=== PATIENT | female | born 1945 | race Caucasian/White ===

== ENCOUNTER 2019-11-17 13:20 | Outpatient (CLI) | payer MEDICARE, MEDICAID, SELFPAY ==
--- NOTE | ~2019-11-17 | MM_ITS ---
EXAMINATION: MM screening [facility] BI w sabrina HISTORY: Screening mammogram, history of right breast cancer TECHNIQUE: Craniocaudal and mediolateral oblique 3-D tomosynthesis images were obtained and synthetic 2-D images were generated. CAD analysis was submitted and interpreted. COMPARISON: 05/26/2019, 07/12/2018, 06/21/2017 BREAST PARENCHYMAL COMPOSITION: There are scattered areas of fibroglandular density. FINDINGS: Architectural distortion of the right breast is consistent with lumpectomy change. There is no evidence of suspicious mass, calcification, or architectural distortion to suggest malignancy in either breast. There has been no suspicious interval change. IMPRESSION: 1. No mammographic evidence of malignancy. 2. Recommend routine screening mammography in one year. BI-RADS Category 2: Benign finding(s). Reviewed, dictated and finalized at location A. ER GOODS FINISHER
== END 2019-11-17 13:21 | disposition home or self-care (01) ==
PROVIDERS: PCP Internal Medicine; Visit Provider Obstetrics & Gynecology
DX: Z12.31 Encounter for screening mammogram for malignant neoplasm of breast (principal)
CPT/HCPCS: 77063; 77067

== ENCOUNTER → 2019-11-22 09:17 | Outpatient (CLI) | payer MEDICARE, MEDICAID, SELFPAY ==
--- NOTE | ~2019-11-22 | DEXA_ITS ---
Bone Density Report Name: Mildred Almeida Age: 74 Sex: Female Ethnicity: White Date of : 1945 Indication: postmenopausal; screening for osteoporosis; height loss; Referring Provider: Dorcas, Amanda Colon Study: Bone densitometry was performed. Exam Date: November 22, 2019 Accession number: [id number] Bone Density: Region BMD T-score Z-score Classification AP Spine (L1, L4) 1.222 1.7 4.1 Normal Femoral Neck (Left) 0.838 -0.1 2.0 Normal Total Hip (Left) 1.004 0.5 2.3 Normal Femoral Neck (Right) 0.899 0.5 2.6 Normal Total Hip (Right) 0.979 0.3 2.1 Normal Total Hip Mean 0.992 0.4 2.2 Normal World Health Organization criteria for BMD impression classify patients as: Normal (T-score at or above -1.0), Osteopenia (T-score between -1.0 and -2.5), or Osteoporosis (T-score at or below -2.5). 10-year Fracture Risk: FRAX not reported because: All T-scores for Spine Total, Hip Total, Femoral Neck at or above -1.0 Previous Exams: Region Exam Age BMD T-score BMD Change BMD Change Date g/cm2 vs Baseline vs Previous AP Spine(L1, L4) 11/22/2019 74 1.222 1.7 0.144* 0.137 04/19/2009 63 1.085 0.4 0.007 0.007 04/14/2006 60 1.078 0.4 Total Hip(Left) 11/22/2019 74 1.004 0.5 -0.096* 0.002 04/19/2009 63 1.002 0.5 -0.098 -0.098 04/14/2006 60 1.099 1.3 Total Hip(Right) 11/22/2019 74 0.979 0.3 -0.154* -0.035 04/19/2009 63 1.014 0.6 -0.120 -0.120 04/14/2006 60 1.134 1.6 *Denotes significance at 95% confidence level, LSC for AP Spine = 0.022 g/cm2, LSC for Total Hip = 0.027 g/cm2 Clinical Information Provided by Patient: Has used the following medications: Vitamin D, Calcium, CALCIUM AND MTV OFF AND ON Patient maximum height was 59.5 Menopause Age: 49 No regular weight bearing exercise Onset of menses at age 13 Number of children 2 Impression: The patient has normal bone mass. No significant bone loss was observed. Discussion: BONE DENSITY IS ABOVE THE MINIMUM DESIRABLE LEVEL AT ALL SKELETAL SITES TESTED. This patient?s bone mineral density is above the minimum desirable level (T-score -1.0 or better) at all sites measured. The patient should follow a healthful lifestyle (good nutrition with adequate calcium and vitamin D, and appropriate weight-bearing exercise). Follow-Up: Consider repe
== END ==
PROVIDERS: PCP Internal Medicine; Visit Provider Nurse Practitioner Obstetrics & Gynecology
DX: Z78.0 Asymptomatic menopausal state (principal)
CPT/HCPCS: 77080

== ENCOUNTER 2021-02-27 10:17 | Outpatient (CLI) | payer MEDICARE, MEDICAID, SELFPAY ==
--- NOTE | ~2021-02-27 | MM_ITS ---
EXAMINATION: MM screening [facility] BI w sabrina HISTORY: Screening TECHNIQUE: Craniocaudal and mediolateral oblique 3-D tomosynthesis images were obtained and synthetic 2-D images were generated. CAD analysis was submitted and interpreted. COMPARISON: Comparison to multiple prior studies sequentially, with oldest reviewed study dated 06/04. BREAST PARENCHYMAL COMPOSITION: There are scattered areas of fibroglandular density. FINDINGS: There are stable lumpectomy changes of the right breast. There is no evidence of suspicious mass, calcification, or architectural distortion to suggest malignancy in either breast. There has b een no suspicious interval change. IMPRESSION: 1. No mammographic evidence of malignancy. 2. Recommend routine screening mammography in one year. BI-RADS Category 2: Benign finding(s). Reviewed, dictated and finalized at location A.
== END 2021-02-27 10:18 | disposition home or self-care (01) ==
LOC: ANHIMG 10:26
PROVIDERS: PCP Internal Medicine; Visit Provider Radiology Radiation Oncology
DX: Z12.31 Encounter for screening mammogram for malignant neoplasm of breast (principal)
CPT/HCPCS: 77063; 77067

== ENCOUNTER 2022-03-27 07:44 | Outpatient (CLI) | payer MEDICARE, MEDICAID, SELFPAY ==
--- NOTE | ~2022-03-27 | MM_ITS ---
EXAMINATION: MM screening [facility] BI w sabrina HISTORY: Screening TECHNIQUE: Craniocaudal and mediolateral oblique 3-D tomosynthesis images were obtained and synthetic 2-D images were generated. CAD analysis was submitted and interpreted. COMPARISON: Comparison to multiple prior studies sequentially, with oldest reviewed study dated 06/21. BREAST PARENCHYMAL COMPOSITION: There are scattered areas of fibroglandular density. FINDINGS: There are developing breast asymmetries in the periareolar location of the right breast in the upper outer quadrant of the left breast. IMPRESSION: 1. Developing bilateral breast asymmetries. 2. Additional mammographic views and possible breast ultrasound are recommended. BI-RADS Category 0: Incomplete: Needs additional imaging evaluation. Reviewed, dictated and finalized at location A. IMPRESSION: 1. Developing bilateral breast asymmetries. 2. Additional mammographic views and possible breast ultrasound are recommended . BI-RADS Category 0: Incomplete: Needs additional imaging evaluation.
== END 2022-03-27 07:45 | disposition home or self-care (01) ==
PROVIDERS: PCP Internal Medicine; Visit Provider Radiology Radiation Oncology
DX: Z12.31 Encounter for screening mammogram for malignant neoplasm of breast (principal); R92.8 Other abnormal and inconclusive findings on diagnostic imaging of breast
CPT/HCPCS: 77063; 77067

== ENCOUNTER 2022-04-08 12:15 | Outpatient (CLI) | payer MEDICARE, MEDICAID, SELFPAY ==
--- NOTE | ~2022-04-08 | MMUS_ITS ---
EXAMINATION: MM diagnostic [facility] BI w sabrina, US breast BI limited HISTORY: Follow breast asymmetries TECHNIQUE: Additional 3-D tomosynthesis images of the breasts were performed and synthetic 2-D images were generated. CAD analysis was submitted and interpreted. High resolution limited bilateral breast ultrasound was performed. COMPARISON: Comparison to multiple prior studies sequentially, with oldest reviewed study dated 11/2017. BREAST PARENCHYMAL COMPOSITION: Breast composed of scattered areas of fibroglandular density FINDINGS: MAMMOGRAPHIC FINDINGS: There is a small subareolar mass of the right breast. There are surgical changes in the right breast, consistent with previous lumpectomy. The focal asymmetry in the left breast is less dense with spot compression views. No discrete mass or architectural distortion. No suspicious cluster of calcificati ons are identified. ULTRASOUND: Limited right breast ultrasound: At the areola there is a 4 mm cyst corresponding to the mammographic finding. No other masses are seen. Limited left breast ultrasound: Normal heterogeneous echotexture without focal solid or cystic mass. There is a normal appearing 11 mm lymph node with fatty hilum in the left axilla. IMPRESSION: 1. No evidence for malignancy in either breast. 2. Routine yearly screening mammogram and regular clinical breast examination are recommended. BI-RADS Category 2: Benign finding(s). Reviewed, dictated and finalized at location A. IMPRESSION: 1. No evidence for malignancy in either breast. 2. Routine yearly screening mammogram and regular clinical breast examination a re recommended. BI-RADS Category 2: Benign finding(s).
== END 2022-04-08 12:16 | disposition home or self-care (01) ==
LOC: ANHIMG 12:17
PROVIDERS: PCP Internal Medicine; Visit Provider Radiology Radiation Oncology
DX: R92.8 Other abnormal and inconclusive findings on diagnostic imaging of breast (principal)
CPT/HCPCS: 76642; 77062; 77066; G0279

== ENCOUNTER 2022-06-26 14:45 | Outpatient (CLI) | payer MEDICARE, MEDICAID, SELFPAY ==
--- NOTE | ~2022-06-26 | DEXA_ITS ---
Bone Density Report Name: TANA DESAI Age: 77 Sex: Female Ethnicity: White Date of : 1945 Indication: postmenopausal; screening for osteoporosis; height loss; cancer; rheumatoid arthritis; Referring Provider: MENG, HAVEN Huynh Study: Bone densitometry was performed. Exam Date: June 26, 2022 Accession number: [id number] Bone Density: Region BMD T-score Z-score Classification AP Spine(L1-L4) 1.420 3.4 6.0 Normal Femoral Neck (Left) 0.925 0.7 2.9 Normal Total Hip (Left) 0.998 0.5 2.4 Normal Femoral Neck (Right) 0.885 0.3 2.5 Normal Total Hip (Right) 1.021 0.6 2.6 Normal Total Hip Mean 1.009 0.6 2.5 Normal World Health Organization criteria for BMD impression classify patients as: Normal (T-score at or above -1.0), Osteopenia (T-score between -1.0 and -2.5), or Osteoporosis (T-score at or below -2.5). 10-year Fracture Risk: FRAX not reported because: All T-scores for Spine Total, Hip Total, Femoral Neck at or above -1.0 Clinical Information Provided by Patient: Has rheumatoid arthritis Has used the following medications: Vitamin D, Calcium Has the following medical conditions: Cancer Patient maximum height was 60 Menopause Age: 59 Drinks caffeinated beverages Onset of menses at age 12 Number of children 2 Impression: The patient has normal bone mass. Discussion: LOW RISK OF FRACTURE; BONE DENSITY IS WELL ABOVE THE MINIMUM DESIRABLE LEVEL AND ABOVE AVERAGE FOR AGE AND SEX AT ALL SKELETAL SITES TESTED. This person's bone density is above expected limits for age and sex. This is rarely clinically significant, but should be pursued if there are significant musculoskeletal complaints. The patient should follow a healthful lifestyle (good nutrition with adequate calcium and vitamin D, and appropriate weight-bearing exercise). Follow-Up: Consider repeating this study in 5 years or sooner if there is some new clinical indication. Reported by: SINAN on 06/26/2022 3:02:00 PM. Reviewed, dictated and finalized at location ADax BRITO
== END 2022-06-26 14:46 | disposition home or self-care (01) ==
PROVIDERS: PCP Internal Medicine; Visit Provider Internal Medicine
DX: M81.0 Age-related osteoporosis without current pathological fracture (principal)
CPT/HCPCS: 77080

== ENCOUNTER 2024-06-27 14:37 | Outpatient (CLI) | payer MEDICARE, MEDICAID, SELFPAY ==
--- NOTE | ~2024-06-27 | MM_ITS ---
EXAMINATION: MM screening [facility] BI w sabrina HISTORY: Screening mammogram TECHNIQUE: Craniocaudal and mediolateral oblique 3-D tomosynthesis images were obtained and synthetic 2-D images were generated. CAD analysis was submitted and interpreted. COMPARISON: 03/27/2022, 02/27/2021, 11/17/2019, 05/26/2019 BREAST PARENCHYMAL COMPOSITION:Not Dense. There are scattered areas of fibroglandular density. FINDINGS: There are surgical clips and benign dystrophic calcifications in the right subareolar regio n. No suspicious mass, calcification, or architectural distortion are identified in either breast to suggest malignancy. There has been no suspicious interval change. IMPRESSION: No mammographic evidence of malignancy. Recommend routine screening mammography in one year. BI-RADS Category 2: Benign finding(s). Reviewed, dictated and finalized at location .
--- NOTE | ~2024-06-27 | DEXA_ITS ---
Bone Density Report Name: TANA DESAI Age: 79 Sex: Female Ethnicity: White Date of : 1945 Indication: postmenopausal; screening for osteoporosis; height loss; cancer; Referring Provider: GELY, HAVEN Huynh Study: Bone densitometry was performed. Exam Date: June 27, 2024 Accession number: [id number] Bone Density: Region BMD T-score Z-score Classification AP Spine(L1-L4) 1.484 4.0 6.7 Normal Femoral Neck (Left) 0.785 -0.6 1.7 Normal Total Hip (Left) 1.071 1.1 3.1 Normal Femoral Neck (Right) 0.805 -0.4 1.9 Normal Total Hip (Right) 0.989 0.4 2.4 Normal Total Hip Mean 1.030 0.8 2.8 Normal World Health Organization criteria for BMD impression classify patients as: Normal (T-score at or above -1.0), Osteopenia (T-score between -1.0 and -2.5), or Osteoporosis (T-score at or below -2.5). 10-year Fracture Risk: FRAX not reported because: All T-scores for Spine Total, Hip Total, Femoral Neck at or above -1.0 Previous Exams: Region Exam Age BMD T-score BMD Change BMD Change Date g/cm2 vs Baseline vs Previous AP Spine (L1-L4) 06/27/2024 79 1.484 4.0 0.064 (4.5%)* 0.064 (4.5%)* 06/26/2022 77 1.420 3.4 Total Hip(Left) 06/27/2024 79 1.071 1.1 0.073 (7.3%)* 0.073 (7.3%)* 06/26/2022 77 0.998 0.5 Total Hip(Right) 06/27/2024 79 0.989 0.4 -0.032 (-3.1%) -0.032 (-3.1%) 06/26/2022 77 1.021 0.6 *Denotes significance at 95% confidence level, LSC for AP Spine = 0.022 g/cm2, LSC for Total Hip = 0.027 g/cm2 Clinical Information Provided by Patient: Has the following medical conditions: Cancer Patient maximum height was 60 Menopause Age: 59 No regular weight bearing exercise Drinks caffeinated beverages Onset of menses at age 14 Number of children 2 Impression: The patient has normal bone mass. The BMD for the Total Hip(Right) decreased, changing by -3.1% since the last DXA exam. Discussion: BONE DENSITY IS ABOVE THE MINIMUM DESIRABLE LEVEL AT ALL SKELETAL SITES TESTED. This patient?s bone mineral density is above the minimum desirable level (T-score -1.0 or better) at all sites measured. The patient should follow a healthful lifestyle (good nutrition with adequate calcium and vitamin D, and appropriate weight-bearing exercise). Follow-Up: Consider repeating this study in 3 to 4 years to reassess this patient's status, or sooner if there is some new clinical indication. Reported by
== END 2024-06-27 14:38 | disposition home or self-care (01) ==
LOC: ANHIMG 14:38
PROVIDERS: PCP Internal Medicine; Visit Provider Internal Medicine
DX: Z12.31 Encounter for screening mammogram for malignant neoplasm of breast (principal); Z13.820 Encounter for screening for osteoporosis; Z78.0 Asymptomatic menopausal state
CPT/HCPCS: 77063; 77067; 77080

== ENCOUNTER 2025-07-09 12:44 | Outpatient (CLI) | payer MEDICARE, MEDICAID, SELFPAY ==
--- OUTSIDE RECORDS SUMMARY | 2010-03-18 04:45 | XMS_ITS | Continuity of Care Document ---
Author Organization [facility] Address [address] [place] [address] [place] [address] Phone Care Team Providers Care Coil Connector Repairer Name Role Phone ShivJosé Miguel oliveros Unavailable Unavailable Procedures Procedure Date Eye Exam, New Patient Refraction Advance Directives Directive Yes / No Effective Date File Name No Information Encounters Encounter Description Practice Location Reason(s) For Visit Diagnoses Date Provider Providers Copied on Encounter [facility], [address], [place], [place], [id number], [place] tel:[phone] [facility] No Information [phone] Keke José Miguel. [address] [facility] [address], [place], [address], [place]. tel:[phone] Family History Family Member Type Diagnosis Age At Onset No Information Payers Payer name Insurance type Covered constitution party ID Authoriza tion(s) No Information Social History Type Description Quantity Date Captured Comments Sex Female Smoking Status No Information Chief Complaint And Reason For Visit No Information Reason For Referral Reason For Referral No Information History Of Present Illness Encounter Date Complaint History Of Prese nt Illness No Information Functional Status Date Functional Assessmen t No Information Instructions Date Instruction Additional Infor mation No Information Assessments Type Assessment Date No Information Patient Care Teams Name Effective Dates (start - stop) Status Members No Information
--- NOTE | ~2025-07-09 | XR_ITS ---
EXAMINATION: XR hip RT min 2V, 07/09/2025 13:00 CDT HISTORY: PAIN IN R HIP COMPARISON: No comparisons available. Findings: No acute fracture or malalignment. No significant degenerative changes. Soft tissues unremarkable. Impression: No acute fracture or malalignment. Reviewed, dictated and finalized at location P. Impression: No acute fracture or malalignment.
--- OUTSIDE RECORDS SUMMARY | 2025-07-09 12:52 | XMS_ITS | Encounter Summary ---
Author Organization [facility] Address [address] [place] [address] Care Team Providers Care Linen Folder Name Role Phone Bertin Aranda MD Primary Care Provider [phone] Encounter Details Date Type Department Care Team (Late st Contact Info) Description 10/12/2018 Chart Note [facility] Radiation Therapy [address] [place] [address] [place] [address] [place] [address] Social History Tobacco Use Types Packs/Day Years Used Date Smoking Tobacco: Never Smokeless Tobacco: Never Alcohol Use Standard Drinks/Week Comments Yes 0 (1 standard drink = 0.6 oz pur e alcohol) rare Comments No Sex and Gender Information Value Date Recorded Sex Assigned at Not on file Legal Sex Female 10:27 PM CDT Gender Identity Not on file Sexual Orientation Not on file documented as of this encounter Plan of Treatment Not on file documented as of this encounter Visit Diagnoses Not on filedocumented in this encounter Care Teams Linen Folder Relationship Specialty Start Date End Date Bertin Aranda MD [address] [facility] [address] [place] [id number] PCP - General Internal Medicine 07/13/18 documented as of this encounter
--- OUTSIDE RECORDS SUMMARY | 2025-07-09 12:52 | XMS_ITS | Encounter Summary ---
Author Organization [employer] [facility] Address [address] [facility] [place] [address] Phone Care Team Providers Care Ballpoint Pen Cartridge Tester Name Role Phone Bertin Aranda MD Primary Care Provider [phone] Reason for Visit * Reason Comments Med Refill Encounter Details Date Type Department Care Team (Late st Contact Info) Description 10/12/[address], [facility] [address] [facility] [[email or web address] [address] [place] [address] Castillo Guerin DO [address] [facility] [address] [place] [address] Social History Tobacco Use Types Packs/Day Years Used Date Smoking Tobacco: Never Alcohol Use Standard Drinks/Week Comments No 0 (1 standard drink = 0.6 oz pur e alcohol) Comments Unknown Sex and Gender Information Value Date Recorded Sex Assigned at Not on file Legal Sex Female 2:51 PM EDT Gender Identity Not on file Sexual Orientation Not on file COVID-19 Exposure Response Date Recorded In the last month, have you been in contact with someone who was confirmed or suspected to have Coronavirus / COVID-19? No / Unsure 10/14/2021 12:22 PM EST documented as of this encounter Plan of Treatment Upcoming Encounters Date Type Department Care Team (Late st Contact Info) Description 07/31/2025 1:15 PM CDT Office Visit [employer], [facility] [address] [facility] [address] [place] [address] Castillo Guerin DO [address] [facility] [address] [place] [address] documented as of this encounter Visit Diagnoses Not on filedocumented in this encounter Care Teams Ballpoint Pen Cartridge Tester Relationship Specialty Start Date End Date Bertin Aranda MD [address] [facility] [address] [place] [address] PCP - General Internal Medicine 10/14/21 documented as of this encounter
--- OUTSIDE RECORDS SUMMARY | 2025-07-09 12:53 | XMS_ITS | Clinical Summary ---
Author Organization [facility] Address [address] [place] [address] Phone Care Team Providers Care Meat Grinder Name Role Phone Bertin Aranda MD Primary Care Provider Allergies Active Allergy Reactions Criticality Noted Date Comments Etodolac Hives Medium 08/23/2023 Levofloxacin Nausea And Vomiting,Nausea only Low 03/16/2019 Sulfamethoxazole-Trimethopri m Dizziness Low 08/23/2023 Tramadol Unknown,Vomiting Low 02/21/2018 Medications HYDROcodone-claudia taminophen (NORCO) 7.5-325 mg per tablet Take 1 tablet by mouth 2 (two) times a day Active lisinopril-hydr oCHLOROthiazide (ZESTORETIC) 20-25 mg per tablet Take 0.5 tablets by mouth daily 09/07/2022 Active metFORMIN (GLUCOPHAGE) 500 mg tablet TAKE 1 TABLET(S) TWICE A DAY BY ORAL ROUTE. Active pravastatin (PRAVACHOL) 40 mg tablet Take 1 tablet (40 mg total) by mouth daily Active amoxicillin-cla vulanate (AUGMENTIN) 875-125 mg per tablet Take 1 tablet by mouth every 12 (twelve) hours 09/20/2023 Active gabapentin (NEURONTIN) 600 mg tablet TAKE 1 TABLET(600 MG) BY MOUTH THREE TIMES DAILY 90 tablet 11 08/17/2024 Active Active Problems Problem Noted Date Diagnosed Date Acute sinusitis 09/19/2023 Benign essential hypertension 08/23/2023 Depressive disorder 08/23/2023 Disorder of shoulder 08/23/2023 Elevated creatine kinase level 08/23/2023 Osteoarthritis 08/23/2023 Polyneuropathy 08/23/2023 Pure hypercholesterolemia 08/23/2023 Type 2 diabetes mellitus 08/23/2023 Acute bronchitis 06/21/2023 Hypotensive episode 05/27/2023 Cervical radiculopathy 05/17/2023 Muscle pain 05/10/2023 Pain in joint of right shoulder 05/10/2023 Obesity 01/20/2023 Acute urinary tract infection 10/27/2022 Neuropathy 11/09/2021 Leg cramps 03/16/2019 Acquired absence of right nipple 09/15/2018 Carcinoma of breast 09/13/2018 Stage 3 chronic kidney disease 11/28/2017 Spinal stenosis of lumbar region 05/31/2017 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 Immunizations Immunization Administration Dates Next Due Influenza, Quadrivalent, Ruma l Culture-based MDCK, Preservative Free, Antibiotic Free, Intramuscular 07/20/2019 Influenza, Quadrivalent, Hig h Dose, Preservative Free, Intrr 07/17/2023,07/06/2022,07/12/2021 Influenza, Trivalent, Adjuva nted, Intramuscular 08/02/2017 Influenza, Trivalent, High D ose, Split, Preservative Free, Intramuscular 07/27/2018,07/16/2016,06/29/2015,07/21 Influenza, Unspecified 07/21/2022 MMR 08/23/2015,06/21/2015 Pneumococcal Conjugate PCV 13 10/17/2014 Tdap 06/21/2015 Social History Tobacco Use Types Packs/Day Years Used Date Smoking Tobacco: Never Smokeless Tobacco: Never Tobacco Cessation:Counseling Given: Not Answered AUDIT-C Answer Date Recorded Q1: How often do you have a drink containing alcohol? Never 10/05/2023 Q2: How many drinks containi ng alcohol do you have on a typical day when you are drinking? Patient does not drink Q3: How often do you have si x or more drinks on one occasion? Never 10/05/2023 Comments Unknown Sex and Gender Information Value Date Recorded Sex Assigned at Not on file Legal Sex Female 8:38 PM PATIENT PLACEMENT COORDINATOR Gender Identity Not on file Sexual Orientation Not on file Obstetrics History Last Filed Vital Signs Vital Sign Reading Time Taken Comments Blood Pressure 140/80 08/23/2023 9:35 AM PATIENT PLACEMENT COORDINATOR Pulse 93 08/23/2023 9:35 AM PATIENT PLACEMENT COORDINATOR Temperature - - Respiratory Rate - - Oxygen Saturation - - Inhaled Oxygen Concentration - - Weight 63.2 kg (139 lb 6.4 oz) 10/05/2023 2:27 P M PATIENT PLACEMENT COORDINATOR Height 151.1 cm (4' 11.5) 10/05/2023 2:27 PM CS T Body Mass Index 27.68 10/05/2023 2:27 PM PATIENT PLACEMENT COORDINATOR Plan of Treatment Health Maintenance Due Date Last Done Comments Albumin Creatinine Ratio, Urine 1945 Depression Screening 1945 Fall Risk Assessment 1945 Hemoglobin A1C 1945 Osteoporosis Screening-Bone Density Scan 1945 eGFR 1945 Dilated Eye Exam 1945 Foot Exam 1945 Lipid Panel 1945 Hepatitis B Screening 1962 Zoster Vaccine (1 of 2) 1994 Well Visit 65+ 2009 Pneumococcal vaccine 65+ (2 of 2 - PPSV23, PCV20, or PCV21) 12/12/2014 10/17/2014 Covid-19 Vaccine (5 - 2024-2 6 season) 2025 08/01/2022, 07/12/2021, 12/14/2020, Additional history exists Influenza Vaccine (#1) 2025 , 07/21/2022, 07/06/2022, Additional history exists DTaP/Tdap/Td Vaccine (2 - Td or Tdap) 06/21/2025 06/21/[address] [place] [address] [facility] MEDICARE [facility] Address: [address] [address] [place] [address] [place] [address] [facility] MEDICARE [facility]AGE [facility] Address: [address] [address] [place] [address] Care Teams Meat Grinder Relationship Specialty Start Date End Date Bertin Aranda MD PCP - General Internal Medicine 07/20/18
--- OUTSIDE RECORDS SUMMARY | 2025-07-09 12:53 | XMS_ITS | Clinical Summary ---
Author Organization [facility] Address [address] [address] Care Team Providers Care Timber Sizer Operator Name Role Phone Bertin Aranda MD Primary Care Provider [phone] Allergies Active Allergy Reactions Criticality Noted Date Comments Levofloxacin Nausea and Vomiting Low 03/16/2019 Tramadol Unknown 02/21/2018 Medications metFORMIN (GLUCOPHAGE) 500 mg tablet Take 500 mg by mouth. Active lisinopril-hydr oCHLOROthiazide (ZESTORETIC) 20-25 mg tablet Take by mouth. Active cholecalciferol , Vitamin D3, (VITAMIN D3) 1,000 unit Capsule Take 1 Capsule by mouth. Active pravastatin (PRAVACHOL) 40 mg tablet Take 40 mg by mouth. Active pregabalin (LYRICA) 75 mg Capsule Take 75 mg by mouth. Active FLUZONE HIGH-DOSE , PF, 180 mcg/0.5 mL Syringe syringe 8 Active lancets lancets USE TWICE DAILY Active blood sugar diagnostic (ACCU-CHEK MAYCO PLUS TEST STRP) Strip One Touch Test strips TEST TWICE DAILY Active azithromycin (ZITHROMAX) 250 mg tablet Zithromax Z-Richardson 250 mg tablet Take 2 TABLET EVERY DAY by oral route for 1 day then one daily Active lisinopril-hydr oCHLOROthiazide (ZESTORETIC) 20-25 mg tablet lisinopril 20 mg-hydrochloroth iazide 25 mg tablet TAKE 1 TABLET EVERY DAY Active pravastatin (PRAVACHOL) 40 mg tablet pravastatin 40 mg tablet TAKE 1 TABLET EVERY DAY Active pregabalin (LYRICA) 75 mg Capsule pregabalin 75 mg capsule TAKE 1 CAPSULE THREE TIMES DAILY Active Active Problems Problem Noted Date Diagnosed Date Leg cramps 03/16/2019 History of external beam radiation therapy 12/14 Acquired absence of right nipple 09/15/2018 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, estrogen receptor positive 07/26/2018 Resolved Problems Problem Noted Date Diagnosed Date Resolved Date Bloody discharge from nipple 07/13/2018 11/09/2018 Abnormal ultrasound of breast 07/13/2018 11/09/2018 Social History Tobacco Use Types Packs/Day Years Used Date Smoking Tobacco: Never Smokeless Tobacco: Never Alcohol Use Standard Drinks/Week Comments Yes 0 (1 standard drink = 0.6 oz pur e alcohol) rare Comments No Sex and Gender Information Value Date Recorded Sex Assigned at Not on file Legal Sex Female 10:27 PM CDT Gender Identity Not on file Sexual Orientation Not on file Last Filed Vital Signs Vital Sign Reading Time Taken Comments Blood Pressure 127/78 07/06/2019 9:02 AM CDT Pulse 93 07/06/2019 9:02 AM CDT Temperature 36.9 C (98.5 F) 07/06/2019 9:02 AM CDT Respiratory Rate - - Oxygen Saturation 97% 07/06/2019 9:02 AM CDT Inhaled Oxygen Concentration - - Weight 76.7 kg (169 lb 1.6 oz) 07/06/2019 9:02 A M CDT Height 149.9 cm (4' 11) 07/06/2019 9:02 AM CDT Body Mass Index 34.15 07/06/2019 9:02 AM CDT Plan of Treatment Health Maintenance Due Date Last Done Comments DIABETES ANNUAL FOOT EXAM 1962 DIABETES ANNUAL RETINAL EXAM 1962 DIABETES MICROALBUMIN ANNUAL SCREEN 1962 LDL CHOLESTEROL ANNUAL 1962 DTAP/TDAP/TD VACCINES (1 - Tdap) 1963 ZOSTER VACCINE (1 of 2) 1994 OSTEOPOROSIS SCREENING 2009 PNEUMOCOCCAL VACCINE 50+ YEA RS (2 of 2 - PPSV23, PCV20, or PCV21) 12/12/2014 10/17/2014 RSV VACCINE (60+ or ) (1 - 1-dose 75+ series) 2019 DIABETES HBA1C Q 6 MONTHS 09/03/2019 03/03/2019 INFLUENZA VACCINE (#1) 2025 07/21/2014 Insurance [place] Member Subscriber Plan / Payer ( fective 2021-Present) Name:Mildred Almeida Kale Relation to Subscriber:Self Name:Mildred Almeida Payer ID:Not on file Group ID:Not on file Type:Medicaid Address: [address] Care Teams Timber Sizer Operator Relationship Specialty Start Date End Date Bertin Aranda MD [address] [place] [address] [address] [place] [address] PCP - General Internal Medicine 07/13/18
--- OUTSIDE RECORDS SUMMARY | 2025-07-09 12:53 | XMS_ITS | Clinical Summary ---
Author Organization [facility] Address [address] [place] [address] Care Team Providers Care Orthopedics Nurse Name Role Phone Bertin Aranda MD Primary Care Provider [phone] Source Comments [facility],non-owned Affiliates and Associated Physician Practices is amultiple site organization consisting of ambulatory clinics and hospital sitesin [place], [place], [place] and [place]. This disclosure is being madepursuant to the Care Everywhere program and may not contain all informatio navailable regarding this patient. Last updated 18.[facility] Social History Tobacco Use Types Packs/Day Years Used Date Smoking Tobacco: Never Assessed Comments Unknown Sex and Gender Information Value Date Recorded Sex Assigned at Not on file Legal Sex Female 4:24 PM CDT Gender Identity Not on file Sexual Orientation Not on file Plan of Treatment Health Maintenance Due Date Last Done Comments BONE DENSITY TESTING 1944 DTAP/TDAP/TD VACCINES (1 - Tdap) 1963 PNEUMOCOCCAL VACCINE 50+ (1 of 1 - PCV) 1994 ZOSTER VACCINE (1 of 2) 1994 Respiratory Syncytial Virus (RSV) Vaccine Pt: or over 60 yrs (1 - 1-dose 75+ series) 2019 DEPRESSION SCREENING 10/11/2024 COVID-19 VACCINE (1 - 2023-2 5 season) 2025 INFLUENZA VACCINE (#1) 2025 HEPATITIS B VACCINE Aged Out No longe r eligible based on patient's age to complete this topic HIB VACCINE Aged Out No longer eligi ble based on patient's age to complete this topic HPV VACCINE Aged Out No longer eligi ble based on patient's age to complete this topic MENINGOCOCCAL (Group B) VACC INE SHARED DECISION-MAKING Aged Out No longer eligibl e based on patient's age to complete this topic MENINGOCOCCAL GROUPS A/C/Y/W VACCINE Aged Out No longer eligible b ased on patient's age to complete this topic Insurance [employer] MEDICAID - [place] Care Teams Orthopedics Nurse Relationship Specialty Start Date End Date Bertin Aranda MD [address] [place] [id number] PCP - General Internal Medicine 08/03/18
--- OUTSIDE RECORDS SUMMARY | 2025-07-09 12:53 | XMS_ITS | Clinical Summary ---
Author Organization [facility] Address [address] [place] [address] Care Team Providers Care Sports Announcer Name Role Phone Bertin Aranda MD Primary Care Provider [phone] Medications * This document contains information received from the source organization and may not represent a complete record from that organization. lisinopril-hyd roCHLOROthiazi de (PRINZIDE,ZEST ORETIC) 20-25 MG per tablet Take 1/2 (one-half) tablet by mouth once daily 45 tablet 5 Active metFORMIN 750 MG tablet Take 750 mg by mouth in the morning and 750 mg in the evening. 180 tablet 1 5 Active metFORMIN XR (GLUCOPHAGE-XR ) 750 MG 24 hr tablet TAKE 1 TABLET BY MOUTH IN THE MORNING AND 1 TABLET BY MOUTH IN THE EVENING 200 tablet 2 5 Active amLODIPine (NORVASC) 5 MG tablet Take 1 tablet (5 mg total) by mouth at bed time 100 tablet 2 5 Active olmesartan (BENICAR) 20 MG tablet TAKE 1 TABLET BY MOUTH AT BEDTIME 100 tablet 2 5 Active olmesartan (BENICAR) 20 MG tablet Take 1 tablet (20 mg total) by mouth at bed time 100 tablet 5 06/14/20 25 Discontinued Active Problems Problem Noted Date Diagnosed Date Hypertensive chronic kidney disease, malignant, with chronic kidney disease stage I through stage IV, or unspecified 01/03/2025 Encounters Date Type Department Care Team Description 06/14/2025 Refill [facility], [facility] [address] [facility] [address] [place] [address] Castillo Guerin DO 06/04/2025 Refill [facility], [address] [address] Marysol ElenaCHANEL 06/03/2025 Refill [facility], [facility] [address] [address] Castillo Guerin DO 05/28/2025 Refill [facility] [address] [address] Castillo Guerin DO from Last 3 Months Social History Tobacco Use Types Packs/Day Years [...] Sign Reading Time Taken Comments Blood Pressure 138/60 03/20/2025 2:43 PM CDT Pulse 81 03/20/2025 2:43 PM CDT Temperature 36.1 C (97 F) 01/16/2025 12:44 PM CDT Respiratory Rate 18 03/20/2025 2:43 PM CDT Oxygen Saturation 91% 03/20/2025 2:43 PM CDT Inhaled Oxygen Concentration - - Weight 65.3 kg (144 lb) 03/20/2025 2:43 PM CDT Height 149.9 cm (4' 11) 03/20/2025 2:43 PM CDT Body Mass Index 29.08 03/20/2025 2:43 PM CDT Plan of Treatment Upcoming Encounters Date Type Department Care Team (Late st Contact Info) Description 07/31/2025 1:15 PM CDT Office Visit [facility], [facility] [address] [address] Castillo Guerin DO [address] [place] [phone] Health Maintenance Due Date Last Done Comments Pneumococcal Vaccine: 50+ Years (2 of 2 - PPSV23, PCV20, or PCV21) 10/25/2018 08/30/2018, 10/17/2014 Diabetes: Ophthalmology Exam 03/06/2021 Diabetes: Pedal Pulse Checked 03/06/2021 Diabetes: Sensory Foot Exam 03/06/2021 Diabetes: Visual Foot Exam 03/06/2021 Diabetes: Hemoglobin A1C 04/03/2025 01/01/2025 Influenza Vaccine (#1) 2025 2, 07/20/2019, 07/27/2018, Additional history exists Hepatitis B Vaccine Aged Out No longe r eligible based on patient's age to complete this topic Procedures Procedure Name Priority Date/Time Associated Diagnosis Comments HEMOGLOBIN A1C Routine 01/01/2025 10:21 AM CDT from Last 3 Months or Most Recently Relevant to Health Maintenance Results * (ABNORMAL) Hemoglobin A1c (01/01/2025 10:21 AM CDT) Hemoglobin A1C 7.2(H) <5.7 % of total Hgb See order comments Comment: For someone without known diabetes, a hemoglobin A1c value of 6.5% or greater indicates that they may have diabetes and this should be confirmed with a follow-up test. For someone with known diabetes, a value <7% indicates that their diabetes is well controlled and a value greater than or equal to 7% indicates suboptimal control. A1c targets should be individualized based on duration of diabetes, age, comorbid conditions, and other considerations. Currently, no consensus exists regarding use of hemoglobin A1c for diagnosis of diabetes for children. 01/01/2025 10:2 1 AM CDT 01/01/2025 10:25 AM CDT Narrative [facility] - 01/02/2025 2:50 PM CDT FASTING:NO FASTING: NO Resulting Agency Comment Performing Organization Information: Site ID: [id number] Address: [address] [place] [address] Director: Jian Rollins Castillo Guerin DO LAB BLOOD ORDERABLES Final R esult [facility] See order comments [place] [address] from Last 3 Months or Most Recently Relevant to Health Maintenance Insurance U[employer] Medicare Medicaid [place] Care Teams Sports Announcer Relationship Specialty Start Date End Date Bertin Aranda MD [address], [facility] [address] [place] [address] PCP - General Internal Medicine 10/14/21
== END 2025-07-09 12:45 | disposition home or self-care (01) ==
PROVIDERS: PCP Internal Medicine; Visit Provider Internal Medicine
DX: M25.551 Pain in right hip (principal)
CPT/HCPCS: 73502